=== PATIENT | female | born 1990 | race Caucasian/White ===

== ENCOUNTER → 2017-06-14 | Outpatient (REF) | payer OTHER | LOC: M LAB REF 10:27 | PROVIDERS: ATTEND Physician Assistant Medical | DX: R30.0 Dysuria (principal) ==

== ENCOUNTER → 2017-09-23 | Outpatient (CLI) | payer OTHER ==
[2017-09-23 17:13] LABS: BASO # 0.1 10^3/uL (0.0-0.2); BASO % 0.9 % (0.0-1.0); EOS # 0.2 10^3/uL (0.0-0.50); EOS % 3.5 % (0.0-3.0); HEMATOCRIT 39.5 % (36.0-47.0); IMMATURE GRANULOCYTE % 0.3 % (0-3.0); LYMPH # 2.3 10^3/uL (1.5-6.5); LYMPH % 34.3 % (24.0-44.0); MEAN CORPUSCULAR HGB CONC 32.9 g/dl (32.0-36.5); MONO # 0.4 10^3/uL (0.0-0.8); MONO % 6.5 % (0.0-5.0); NEUTROPHILS # 3.6 10^3/uL (1.8-7.7); NEUTROPHILS % 54.5 % (36.0-66.0); PLATELET COUNT, AUTOMATED 254 10^3/uL (150-450); RED BLOOD COUNT 4.34 10^6/uL (4.00-5.40); WHITE BLOOD COUNT 6.7 10^3/uL (4.0-10.0)
[2017-09-23 17:31] LABS: ALBUMIN 3.8 GM/DL (3.2-5.2); ALBUMIN/GLOBULIN RATIO 1.19 (1.00-1.93); ALKALINE PHOSPHATASE 81 U/L (45-117); ALT/SGPT 14 U/L (12-78); ANION GAP 9 MEQ/L (8-16); AST/SGOT 13 U/L (7-37); BILIRUBIN,TOTAL 0.5 MG/DL (0.2-1.0); BLOOD UREA NITROGEN 11 MG/DL (7-18); CALCIUM LEVEL 8.7 MG/DL (8.5-10.1); CARBON DIOXIDE LEVEL 28 MEQ/L (21-32); CHLORIDE LEVEL 106 MEQ/L (98-107); CREATININE FOR GFR 0.87 MG/DL (0.55-1.30); FREE T4 0.87 NG/DL (0.76-1.46); GLOMERULAR FILTRATION RATE > 60.0 (>60); GLUCOSE, FASTING 82 MG/DL (70-100); POTASSIUM SERUM 4.4 MEQ/L (3.5-5.1); SODIUM LEVEL 143 MEQ/L (136-145)
[2017-09-25 10:36] LABS: TOTAL 25(OH) VITAMIN D 11.8 NG/ML (30.0-100.0); VITAMIN B12 LEVEL 270 PG/ML (247-911)
== END ==
LOC: M WUC 11:04
DX: F32.1 Major depressive disorder, single episode, moderate (principal); E55.9 Vitamin D deficiency, unspecified; E53.8 Deficiency of other specified B group vitamins
CPT/HCPCS: 84443

== ENCOUNTER 2017-11-10 12:48 | Emergency (ER) | payer OTHER ==
[2017-11-10] MEDS: ONDANSETRON 4 MG ORAL DISINTEGRATING TAB (Q0162 PER 1MG) PO (13:42)
[2017-11-10] MEDS: DICYCLOMINE INJ 20MG/2ML (J0500) IM (13:42)
[2017-11-10 14:11] LABS: BASO # 0.1 10^3/uL (0.0-0.2); BASO % 0.7 % (0.0-1.0); EOS # 0.1 10^3/uL (0.0-0.50); EOS % 1.5 % (0.0-3.0); HEMATOCRIT 41.1 % (36.0-47.0); HEMOGLOBIN 13.8 g/dl (12.0-15.5); IMMATURE GRANULOCYTE % 0.3 % (0-3.0); LYMPH # 2.7 10^3/uL (1.5-6.5); LYMPH % 29.3 % (24.0-44.0); MEAN CORPUSCULAR HEMOGLOBIN 29.9 pg (27.0-33.0); MEAN CORPUSCULAR HGB CONC 33.6 g/dl (32.0-36.5); MONO # 0.5 10^3/uL (0.0-0.8); MONO % 5.4 % (0.0-5.0); NEUTROPHILS # 5.8 10^3/uL (1.8-7.7); NEUTROPHILS % 62.8 % (36.0-66.0); PLATELET COUNT, AUTOMATED 224 10^3/uL (150-450); RED BLOOD COUNT 4.62 10^6/uL (4.00-5.40); WHITE BLOOD COUNT 9.2 10^3/uL (4.0-10.0)
[2017-11-10 14:32] LABS: ALBUMIN 3.8 GM/DL (3.2-5.2); ALKALINE PHOSPHATASE 80 U/L (45-117); ALT/SGPT 16 U/L (12-78); AMYLASE 50 U/L (25-115); ANION GAP 3 MEQ/L (8-16); AST/SGOT 18 U/L (7-37); BILIRUBIN,DIRECT 0.1 MG/DL (0.0-0.2); BILIRUBIN,TOTAL 0.4 MG/DL (0.2-1.0); BLOOD UREA NITROGEN 14 MG/DL (7-18); CALCIUM LEVEL 9.3 MG/DL (8.5-10.1); CARBON DIOXIDE LEVEL 31 MEQ/L (21-32); CHLORIDE LEVEL 107 MEQ/L (98-107); CREATININE FOR GFR 0.82 MG/DL (0.55-1.30); GLOMERULAR FILTRATION RATE > 60.0 (>60); GLUCOSE, FASTING 79 MG/DL (70-100); LIPASE 151 U/L (73-393); POTASSIUM SERUM 4.2 MEQ/L (3.5-5.1); SODIUM LEVEL 141 MEQ/L (136-145); TOTAL PROTEIN 7.6 GM/DL (6.4-8.2)
[2017-11-10 14:33] LABS: CONTROL LINE HCG INT CTR LINE PRESENT; HCG, SERUM QUALITATIVE NEGATIVE (NEGATIVE)
== END 2017-11-10 14:51 | disposition home or self-care (01) ==
LOC: M ED 12:48
DX: K92.0 Hematemesis (principal)
CPT/HCPCS: J0500

== ENCOUNTER → 2018-01-15 | Outpatient (REF) | payer OTHER | LOC: M SFHCPLAZ 18:42 | DX: N39.0 Urinary tract infection, site not specified (principal) ==

== ENCOUNTER 2018-02-08 20:06 | Emergency (ER) | payer OTHER ==
[2018-02-08 20:39] LABS: APPEARANCE, URINE HAZY (CLEAR); BACTERIA, URINE AUTO NEGATIVE (NEGATIVE); BILIRUBIN, URINE AUTO NEGATIVE (NEGATIVE); BLOOD, URINE BLOOD NEGATIVE (NEGATIVE); COLOR, URINE YELLOW (YELLOW); GLUCOSE, URINE (UA) AUTO NEGATIVE (NEGATIVE); KETONE, URINE AUTO TRACE mg/dL (NEGATIVE); LEUKOCYTE ESTERASE, URINE AUTO NEGATIVE (NEGATIVE); MUCUS, URINE SMALL (NEGATIVE); NITRITE, URINE AUTO NEGATIVE (NEGATIVE); PROTEIN, URINE AUTO NEGATIVE (NEGATIVE); RBC, URINE AUTO 5 /HPF (0-3); SPECIFIC GRAVITY URINE AUTO 1.026 (1.002-1.035); SQUAMOUS EPITHELIAL CELL UR AU 6 /HPF (0-6); WBC, URINE AUTO 2 /HPF (0-3)
[2018-02-08 21:57] LABS: CONTROL LINE UCG INT CTR LINE PRESENT; URINE PREG TEST NEGATIVE (NEGATIVE)
[2018-02-08] MEDS: NS 1,000 ML IV (22:41)
[2018-02-08 22:44] LABS: BASO # 0.1 10^3/uL (0.0-0.2); BASO % 0.7 % (0.0-1.0); EOS # 0.2 10^3/uL (0.0-0.50); EOS % 1.9 % (0.0-3.0); HEMOGLOBIN 14.2 g/dl (12.0-15.5); IMMATURE GRANULOCYTE % 0.3 % (0-3.0); LYMPH # 3.1 10^3/uL (1.5-6.5); LYMPH % 26.8 % (24.0-44.0); MEAN CORPUSCULAR VOLUME 90.7 fl (80.0-96.0); MONO # 0.7 10^3/uL (0.0-0.8); MONO % 6.3 % (0.0-5.0); NEUTROPHILS # 7.4 10^3/uL (1.8-7.7); PLATELET COUNT, AUTOMATED 270 10^3/uL (150-450); RED BLOOD COUNT 4.74 10^6/uL (4.00-5.40); RED CELL DISTRIBUTION WIDTH 12.8 % (11.5-14.5); WHITE BLOOD COUNT 11.6 10^3/uL (4.0-10.0)
[2018-02-08 23:00] LABS: ALBUMIN/GLOBULIN RATIO 1.08 (1.00-1.93); ALKALINE PHOSPHATASE 89 U/L (45-117); ALT/SGPT 20 U/L (12-78); AMYLASE 54 U/L (25-115); ANION GAP 6 MEQ/L (8-16); AST/SGOT 14 U/L (7-37); BILIRUBIN,DIRECT 0.1 MG/DL (0.0-0.2); BILIRUBIN,TOTAL 0.3 MG/DL (0.2-1.0); BLOOD UREA NITROGEN 13 MG/DL (7-18); CALCIUM LEVEL 8.8 MG/DL (8.5-10.1); CARBON DIOXIDE LEVEL 29 MEQ/L (21-32); CHLORIDE LEVEL 106 MEQ/L (98-107); CREATININE FOR GFR 0.93 MG/DL (0.55-1.30); GLOMERULAR FILTRATION RATE > 60.0 (>60); GLUCOSE, FASTING 81 MG/DL (70-100); LIPASE 172 U/L (73-393); SODIUM LEVEL 141 MEQ/L (136-145); TOTAL PROTEIN 7.7 GM/DL (6.4-8.2)
[2018-02-08] MEDS ORDERED: ISOVUE-370 76% 100ML VIAL (Q9967) As Ordered (23:06)
== END 2018-02-09 00:28 | disposition home or self-care (01) ==
LOC: M ED 02-09 00:28
DX: R10.13 Epigastric pain (principal); Z72.0 Tobacco use
CPT/HCPCS: Q9967

== ENCOUNTER 2018-04-20 11:14 | Day surgery (SDC) | payer OTHER ==
[2018-04-20] MEDS: NS 1,000 ML IV (12:14)
[2018-04-20] MEDS ORDERED: LIDOCAINE 2% INJ 100 MG/5 ML SDV (FOR ANES.) As Ordered (12:34)
[2018-04-20] MEDS ORDERED: PROPOFOL 200 MG/20 ML VIAL As Ordered (12:34)
[2018-04-20] MEDS ORDERED: fentaNYL 100 MCG/2 ML INJECTION (J3010) As Ordered (12:58)
== END 2018-04-20 14:36 | disposition home or self-care (01) ==
LOC: M OPP 11:14
DX: Z86.010 Personal history of colon polyps (principal); R10.13 Epigastric pain; K92.0 Hematemesis; K25.9 Gastric ulcer, unspecified as acute or chronic, without hemorrhage or perforation; K59.00 Constipation, unspecified; F41.9 Anxiety disorder, unspecified; F32.9 Major depressive disorder, single episode, unspecified; J00 Acute nasopharyngitis [common cold]; J45.909 Unspecified asthma, uncomplicated; R06.83 Snoring; Z80.0 Family history of malignant neoplasm of digestive organs; Z83.71 Family history of colonic polyps
CPT/HCPCS: 45378

== ENCOUNTER → 2018-06-11 | Outpatient (CLI) | payer OTHER | LOC: M RAD 18:41 | DX: M79.671 Pain in right foot (principal) | CPT/HCPCS: 73630 ==

== ENCOUNTER 2020-03-04 11:47 | Emergency (ER) | payer OTHER ==
[~2020-03-04] VITALS: Ht 165.1 cm; Wt 69.1 kg
[~2020-03-04 11:47] MED LIST: BENT10CA PO; OMEP10CASR PO; ZOFR4TAB14 PO
[2020-03-04] MEDS ORDERED: PREN29TA4 PO (12:33)
[2020-03-04] MEDS ORDERED: NS 1,000 ML IV ONE (13:15)
[2020-03-04 13:59] LABS: BASO # 0.1 10^3/uL (0.0-0.2); BASO % 0.5 % (0.0-1.0); EOS % 0.4 % (0.0-3.0); HEMATOCRIT 44.1 % (36.0-47.0); HEMOGLOBIN 14.5 g/dl (12.0-15.5); LYMPH # 2.7 10^3/uL (1.5-5.0); LYMPH % 26.2 % (24.0-44.0); MEAN CORPUSCULAR HEMOGLOBIN 29.8 pg (27.0-33.0); MEAN CORPUSCULAR HGB CONC 32.9 g/dl (32.0-36.5); MEAN CORPUSCULAR VOLUME 90.6 fl (80.0-96.0); MONO # 0.7 10^3/uL (0.0-0.8); MONO % 6.5 % (0.0-5.0); NEUTROPHILS # 6.8 10^3/uL (1.5-8.5); NEUTROPHILS % 66.1 % (36.0-66.0); PLATELET COUNT, AUTOMATED 213 10^3/uL (150-450); RED BLOOD COUNT 4.87 10^6/uL (4.00-5.40); WHITE BLOOD COUNT 10.3 10^3/uL (4.0-10.0)
[2020-03-04 14:47] LABS: BLOOD UREA NITROGEN 8 MG/DL (7-18); CALCIUM LEVEL 9.7 MG/DL (8.5-10.1); CARBON DIOXIDE LEVEL 25 MEQ/L (21-32); CHLORIDE LEVEL 106 MEQ/L (98-107); CREATININE FOR GFR 0.75 MG/DL (0.55-1.30); FREE T4 0.93 NG/DL (0.76-1.46); GLOMERULAR FILTRATION RATE > 60.0 (>60); GLUCOSE, FASTING 73 MG/DL (70-100); SODIUM LEVEL 137 MEQ/L (136-145); VITAMIN B12 LEVEL 603 PG/ML (247-911)
[2020-03-04] MEDS ORDERED: UNIS25TA3 PO (15:19)
[2020-03-04] MEDS ORDERED: PYRI25TA2 PO (15:19)
[2020-03-04 15:49] VITALS: BP 110/64
[2020-04-04] MEDS ORDERED: CITA10TA5 PO (11:01)
[2020-04-04] MEDS ORDERED: PRENTAB77 PO (15:00)
== END 2020-03-04 16:11 | disposition home or self-care (01) ==
LOC: M ED 11:47
DX: O26.811 Pregnancy related exhaustion and fatigue, first trimester (principal); O99.281 Endocrine, nutritional and metabolic diseases complicating pregnancy, first trimester; Z3A.01 Less than 8 weeks gestation of pregnancy; Z79.899 Other long term (current) drug therapy

== ENCOUNTER → 2020-03-11 | Outpatient (CLI) | payer OTHER ==
[~2020-03-11] MED LIST changes: +CITA10TA5 PO; +PREN29TA4 PO; +PRENTAB77 PO; +PYRI25TA2 PO; +UNIS25TA3 PO
--- NOTE | 2020-04-06 14:33 | REP ---
FIRST TRIMESTER LIMITED OBSTETRICAL ULTRASOUND CLINICAL: Dating and viability. TECHNIQUE: Transabdominal first trimester obstetrical ultrasound with color Doppler evaluation. FINDINGS: Ultrasound examination demonstrates a single live early intrauterine pregnancies. Gestational sac with yolk sac and pole identified. CRL of 16.5 mm corresponds to 8 weeks 1 day gestational age with estimated date of delivery 10/20/2020. heart rate equals 117 beats per minute. Maternal ovaries are normal in appearance. IMPRESSION: Single live early intrauterine pregnancies at 8 weeks 1 day gestational age. Complete anatomical assessment should be performed at 19-20 weeks. MTDD
== END ==
LOC: M WHC 15:33
PROVIDERS: ATTEND Obstetrics & Gynecology
DX: O36.80X0 Pregnancy with inconclusive fetal viability, not applicable or unspecified (principal)

== ENCOUNTER → 2020-04-04 | Day surgery (SDC) | payer OTHER ==
[~2020-04-04] VITALS: Ht 165.1 cm; Wt 62.3 kg
[~2020-04-04] MED LIST changes: +DOXYCYCLINE HYCLATE 100 MG in D5W MINI-BAG PLUS 100 ML IV ONE; +DOXYCYCLINE HYCLATE 100MG TABLET PO ONE; +HYDROMORPHONE HCL 0.5 MG/ 0.5 ML SYRINGE (J1170 PER 1) IV PRN; +KETOROLAC 60MG 2ML VIAL As Ordered ONE; +KETOROLAC 60MG 2ML VIAL IM ONE; +LIDOCAINE 1% SDV 30ML VIAL As Ordered ONE; +LIDOCAINE 2% 100MG/5ML SDV (FOR ANES.) As Ordered ONE; +LR 1,000 ML IV SCH; +METHYLERGONOVINE MALEATE 0.2 MG/ML VIAL (J2210) As Ordered ONE; +METOCLOPRAMIDE INJ 10MG/2ML VIAL (J2765 PER 1) As Ordered ONE; +MIDAZOLAM INJ 2MG/2ML VIAL (J2250 PER 1MG) As Ordered ONE; +MORPHINE 2 MG/ML 1ML VIAL (J2270) IV ONE; +NS 1,000 ML IV ONE; +ONDANSETRON 4MG/2ML VIAL As Ordered ONE; +ONDANSETRON 4MG/2ML VIAL IV ONE; +ONDANSETRON 4MG/2ML VIAL IV PRN; +SILVER NITRATE APPLICATOR As Ordered ONE; +dexameTHASONE 4 MG/ML 1ML VIAL (J1100 PER 1MG) As Ordered ONE; +fentaNYL 100 MCG/2 ML INJECTION (J3010) As Ordered ONE; +fentaNYL 100 MCG/2 ML INJECTION (J3010) IV PRN; +oxyCODONE 5MG TAB PO PRN; +propofoL 200 MG/20 ML VIAL As Ordered ONE
[2020-04-04 11:25] LABS: BASO % 0.5 % (0.0-1.0); EOS # 0.1 10^3/uL (0.0-0.5); EOS % 0.6 % (0.0-3.0); HEMATOCRIT 39.6 % (36.0-47.0); HEMOGLOBIN 13.1 g/dl (12.0-15.5); LYMPH # 1.6 10^3/uL (1.5-5.0); LYMPH % 20.5 % (24.0-44.0); MEAN CORPUSCULAR HEMOGLOBIN 29.3 pg (27.0-33.0); MEAN CORPUSCULAR HGB CONC 33.1 g/dl (32.0-36.5); MEAN CORPUSCULAR VOLUME 88.6 fl (80.0-96.0); MONO # 0.4 10^3/uL (0.0-0.8); NEUTROPHILS # 5.7 10^3/uL (1.5-8.5); NEUTROPHILS % 73.1 % (36.0-66.0); PLATELET COUNT, AUTOMATED 206 10^3/uL (150-450); RED BLOOD COUNT 4.47 10^6/uL (4.00-5.40); WHITE BLOOD COUNT 7.8 10^3/uL (4.0-10.0)
--- NOTE | 2020-04-04 12:55 | REPVR ---
PROCEDURE INFORMATION: Exam: US First Trimester, Transabdominal Exam date and time: 04/04/2020 11:57 AM Age: 29 years old Clinical indication: Other: Vag bleeding and pelvic pain; Gestational age or lmp: 11wks; ; Additional info: Vaginal bleeding TECHNIQUE: Imaging protocol: Real-time transabdominal obstetrical ultrasound of the maternal pelvis and a first trimester , less than 14 weeks 0 days, with image documentation. COMPARISON: No relevant prior studies available. FINDINGS: Gestation: Single intrauterine gestation. Embryonic/ heart rate: No heart rate detected. Placenta: No subchorionic bleed. Amniotic fluid: Gestational sac appears irregular in shape. BIOMETRY: Gestational age (AUA): Estimated gestational age 8 weeks 2 days. Spangle-Rump length: Spangle-rump length 17.7 mm. MATERNAL: Uterus: The uterus measures 8.4 x 6.1 x 7.2 cm. Cervix: Not visualized. Right adnexa: Not visualized. Left adnexa: Not visualized. Intraperitoneal space: No intraperitoneal free fluid. IMPRESSION: Single intrauterine gestation with crown-rump length of 17.7 mm, with no heart rate detected on transabdominal imaging is suspicious for failed early (note criteria for radiologic diagnosis of failed early requires transvaginal imaging), consider follow-up ultrasound in 7 days if needed. Electronically signed by: Prakash Boucher On 04/04/2020 12:54:53 PM
[2020-04-04 13:04] LABS: APPEARANCE, URINE CLEAR (CLEAR); BACTERIA, URINE AUTO NEGATIVE (NEGATIVE); BILIRUBIN, URINE AUTO NEGATIVE (NEGATIVE); BLOOD, URINE BLOOD 2+ (NEGATIVE); COLOR, URINE YELLOW (YELLOW); GLUCOSE, URINE (UA) AUTO NEGATIVE (NEGATIVE); KETONE, URINE AUTO NEGATIVE (NEGATIVE); LEUKOCYTE ESTERASE, URINE AUTO NEGATIVE (NEGATIVE); NITRITE, URINE AUTO NEGATIVE (NEGATIVE); PROTEIN, URINE AUTO NEGATIVE (NEGATIVE); RBC, URINE AUTO 6 /HPF (0-3); SPECIFIC GRAVITY URINE AUTO 1.017 (1.002-1.035); SQUAMOUS EPITHELIAL CELL UR AU 2 /HPF (0-6); UROBILINOGEN, URINE AUTO 0.2 mg/dL (0.0-2.0); WBC, URINE AUTO 2 /HPF (0-3)
[2020-04-04 17:30] VITALS: BP 131/74
--- NOTE | 2020-04-06 14:29 | RO ---
DATE OF OPERATION: 04/04/2020 PREOPERATIVE DIAGNOSIS: Missed . POSTOPERATIVE DIAGNOSIS: Missed . PROCEDURE: Suction dilation and curettage. STAFF PHYSICIAN: Dr. Nga Gramajo TRUCK CATERER: None. INDICATION: Kym is a 29-year-old G1, now P-0-0-1-0 who presented to the emergency room (ER) with vaginal bleeding and cramping. She was previously seen to have a single intrauterine with positive cardiac activity earlier in March, and then when she presented to the ER today she was noted to have really no further progression in development as well as absent cardiac activity, so missed was diagnosed. ANESTHESIA: General with laryngeal mask airway (LMA). ESTIMATED BLOOD LOSS: 50 mL. INTRAVENOUS FLUIDS: 200 mL lactated Ringer's. URINE OUTPUT: Not measured. SPECIMEN SENT TO LABORATORY: Uterine contents/endometrial curettings. FINDINGS: There was a moderate amount of tissue obtained from suction curettage. DESCRIPTION OF PROCEDURE: Patient was taken to the operating room, where general anesthesia was administered with LMA. She was positioned in dorsal lithotomy position and prepped and draped in normal sterile fashion. Once anesthesia was found to be adequate, a speculum was placed in the vagina. Anterior lip of the cervix was grasped with a tenaculum. There was some tissue noted at the os already, so ring forceps were used to remove that tissue, and they were placed with the specimen. At that point, I dilated the cervix using Sven dilators, and then a size 9 straight suction curette was used. It was connected to the suction and placed in the cervix, and suction curette was performed. I also sounded the uterus to 7 cm. Approximately four or five passed were made with the suction curettage, and then a sharp curettage was performed, obtaining a small amount of tissue, and that was followed by another round of suction curettage. At that point, she had some continuous bleeding from the cervix, so I removed the tenaculum. There was slight hemostasis from the tenaculum sites, but I also removed the speculum, and then I performed bimanual massage. I replaced the speculum and removed clot from the vagina with sponge and then noted that there was no further bleeding from the cervix. At that point, I again removed the speculum. I performed a transabdominal ultrasound and noted very thin endometrial stripe. The patient was awakened from anesthesia. All counts were correct times two. She was taken to the recovery room in stable condition. She will be discharged later today. She received 100 mg of IV doxycycline preoperatively, and she will receive 200 mg of oral doxycycline prior to discharge. She will follow up within a week in the office. LUBA
== END | disposition home or self-care (01) ==
LOC: M ED 10:53 → M SDC 14:42
PROVIDERS: ATTEND Obstetrics & Gynecology
DX: O02.1 Missed abortion (principal)
CPT/HCPCS: 59820; 76801; 81001; 84702; 85025; 86850; 86900; 86901; 87086; 88305; 96361; 96372; 96374; 96375; 99285; J1100; J1885; J2250; J2270; J2405; J2765; J3010; U0002

== ENCOUNTER → 2020-07-27 | Outpatient (CLI) | payer OTHER ==
[~2020-07-27] MED LIST changes: -DOXYCYCLINE HYCLATE 100 MG in D5W MINI-BAG PLUS 100 ML IV ONE; -DOXYCYCLINE HYCLATE 100MG TABLET PO ONE; -HYDROMORPHONE HCL 0.5 MG/ 0.5 ML SYRINGE (J1170 PER 1) IV PRN; -KETOROLAC 60MG 2ML VIAL As Ordered ONE; -KETOROLAC 60MG 2ML VIAL IM ONE; -LIDOCAINE 1% SDV 30ML VIAL As Ordered ONE; -LIDOCAINE 2% 100MG/5ML SDV (FOR ANES.) As Ordered ONE; -LR 1,000 ML IV SCH; -METHYLERGONOVINE MALEATE 0.2 MG/ML VIAL (J2210) As Ordered ONE; -METOCLOPRAMIDE INJ 10MG/2ML VIAL (J2765 PER 1) As Ordered ONE; -MIDAZOLAM INJ 2MG/2ML VIAL (J2250 PER 1MG) As Ordered ONE; -MORPHINE 2 MG/ML 1ML VIAL (J2270) IV ONE; -NS 1,000 ML IV ONE; -ONDANSETRON 4MG/2ML VIAL As Ordered ONE; -ONDANSETRON 4MG/2ML VIAL IV ONE; -ONDANSETRON 4MG/2ML VIAL IV PRN; -SILVER NITRATE APPLICATOR As Ordered ONE; -dexameTHASONE 4 MG/ML 1ML VIAL (J1100 PER 1MG) As Ordered ONE; -fentaNYL 100 MCG/2 ML INJECTION (J3010) As Ordered ONE; -fentaNYL 100 MCG/2 ML INJECTION (J3010) IV PRN; -oxyCODONE 5MG TAB PO PRN; -propofoL 200 MG/20 ML VIAL As Ordered ONE
[2020-07-27 15:41] LABS: BASO # 0.1 10^3/uL (0.0-0.2); BASO % 0.7 % (0.0-1.0); EOS # 0.1 10^3/uL (0.0-0.5); EOS % 0.7 % (0.0-3.0); HEMOGLOBIN 13.6 g/dl (12.0-15.5); LYMPH # 2.5 10^3/uL (1.5-5.0); LYMPH % 34.9 % (24.0-44.0); MEAN CORPUSCULAR HEMOGLOBIN 29.2 pg (27.0-33.0); MEAN CORPUSCULAR HGB CONC 31.6 g/dl (32.0-36.5); MEAN CORPUSCULAR VOLUME 92.3 fl (80.0-96.0); MONO # 0.5 10^3/uL (0.0-0.8); MONO % 6.9 % (0.0-5.0); NEUTROPHILS % 56.7 % (36.0-66.0); PLATELET COUNT, AUTOMATED 237 10^3/uL (150-450); RED BLOOD COUNT 4.66 10^6/uL (4.00-5.40); WHITE BLOOD COUNT 7.1 10^3/uL (4.0-10.0)
[2020-07-27 15:44] LABS: HEMATOCRIT 43.5 % (36.0-47.0)
[2020-07-27 16:10] LABS: ERYTHROCYTE SEDIMENTATION RATE 9 mm/hr (0-20)
[2020-07-27 16:12] LABS: C REACTIVE PROTEIN QUANTITATIV < 0.30 MG/DL (0.00-0.30); FREE T3 2.6 PG/ML (2.2-4.0); FREE T4 0.97 NG/DL (0.76-1.46); IMMUNOGLOBULIN G 986 MG/DL (681-1648)
[2020-07-27 16:14] LABS: THYROID PEROXIDASE ANTIBODY 36.6 U/ML (<60.0); TOTAL 25(OH) VITAMIN D 14.3 NG/ML (30.0-100.0); VITAMIN B12 LEVEL 314 PG/ML (247-911)
[2020-08-04 17:09] LABS: EBV VIRAL CAPSID AG IgM <36.0 U/mL (0.0-35.9); Lyme Disease IgG/IgM Antibodie <0.91 ISR (0.00-0.90); Lyme Disease IgM Ab Quantitati <0.80 index (0.00-0.79); Methylmalonic Acid 109 nmol/L (0-378); TISSUE TRANSGLUTAMINASE IgA <2 U/mL (0-3); UNITSIGA FOR GLIADIN IGA 19 units (0-19); UNITSIGG FOR GLIADIN IGG 4 units (0-19)
== END ==
LOC: M LAB 14:15
PROVIDERS: ATTEND Nurse Practitioner Pediatrics
DX: F41.1 Generalized anxiety disorder (principal); F51.01 Primary insomnia; R19.7 Diarrhea, unspecified; R10.32 Left lower quadrant pain

== ENCOUNTER → 2020-07-27 | Outpatient (CLI) | payer OTHER ==
[2020-07-27 15:42] LABS: BASO % 0.5 % (0.0-1.0); EOS # 0.1 10^3/uL (0.0-0.5); EOS % 0.8 % (0.0-3.0); HEMATOCRIT 43.5 % (36.0-47.0); HEMOGLOBIN 13.8 g/dl (12.0-15.5); LYMPH # 2.5 10^3/uL (1.5-5.0); LYMPH % 33.8 % (24.0-44.0); MEAN CORPUSCULAR HEMOGLOBIN 29.4 pg (27.0-33.0); MEAN CORPUSCULAR HGB CONC 31.7 g/dl (32.0-36.5); MEAN CORPUSCULAR VOLUME 92.6 fl (80.0-96.0); MONO # 0.5 10^3/uL (0.0-0.8); MONO % 6.3 % (0.0-5.0); NEUTROPHILS # 4.3 10^3/uL (1.5-8.5); NEUTROPHILS % 58.3 % (36.0-66.0); PLATELET COUNT, AUTOMATED 229 10^3/uL (150-450); WHITE BLOOD COUNT 7.3 10^3/uL (4.0-10.0)
[2020-07-27 16:21] LABS: ALT/SGPT 22 U/L (12-78); BILIRUBIN,TOTAL 0.5 MG/DL (0.2-1.0); BLOOD UREA NITROGEN 9 MG/DL (7-18); CALCIUM LEVEL 9.7 MG/DL (8.5-10.1); CARBON DIOXIDE LEVEL 29 MEQ/L (21-32); CHLORIDE LEVEL 106 MEQ/L (98-107); GLOMERULAR FILTRATION RATE > 60.0 (>60); GLUCOSE, FASTING 82 MG/DL (70-100); HCG, SERUM QUANTITATIVE < 1.0 MIU/ML; POTASSIUM SERUM 4.6 MEQ/L (3.5-5.1); SODIUM LEVEL 138 MEQ/L (136-145); TOTAL PROTEIN 7.5 GM/DL (6.4-8.2)
== END ==
LOC: M LAB 14:13
PROVIDERS: ATTEND Physician Assistant
DX: R10.32 Left lower quadrant pain (principal)

== ENCOUNTER → 2020-10-14 | Outpatient (REF) | payer OTHER | LOC: M LAB REF 18:38 | PROVIDERS: ATTEND Physician Assistant | DX: R50.9 Fever, unspecified (principal) ==

== ENCOUNTER 2020-11-06 11:34 | Emergency (ER) | payer OTHER ==
[~2020-11-06] VITALS: Ht 165.1 cm; Wt 63.6 kg
[2020-11-06] MEDS ORDERED: ALBUTEROL 90 MCG/ACT 8GM HFA INHALER INH ONE (12:50)
[2020-11-06 13:23] LABS: BASO % 0.1 % (0.0-1.0); EOS % 0.1 % (0.0-3.0); HEMATOCRIT 45.6 % (36.0-47.0); HEMOGLOBIN 14.8 g/dl (12.0-15.5); LYMPH # 1.5 10^3/uL (1.5-5.0); LYMPH % 19.4 % (24.0-44.0); MEAN CORPUSCULAR HEMOGLOBIN 29.1 pg (27.0-33.0); MEAN CORPUSCULAR HGB CONC 32.5 g/dl (32.0-36.5); MEAN CORPUSCULAR VOLUME 89.8 fl (80.0-96.0); MONO # 0.4 10^3/uL (0.0-0.8); MONO % 5.1 % (2.0-8.0); NEUTROPHILS # 5.8 10^3/uL (1.5-8.5); NEUTROPHILS % 74.9 % (36.0-66.0); PLATELET COUNT, AUTOMATED 180 10^3/uL (150-450); RED BLOOD COUNT 5.08 10^6/uL (4.00-5.40); WHITE BLOOD COUNT 7.7 10^3/uL (4.0-10.0)
--- NOTE | 2020-11-06 14:18 | REP ---
INDICATION: central chest pain. COMPARISON: No comparison chest x-ray. TECHNIQUE: Portable upright AP chest radiograph. FINDINGS: The lungs are well inflated and free of infiltrate. Pleural angles are sharp. Heart size is normal. Pulmonary vasculature is not increased. IMPRESSION: No active disease. <Electronically signed by Vidal Long > 11/06/20 2027
[2020-11-06] MEDS ORDERED: VENTAER INH (14:35)
[2020-11-06 14:47] VITALS: BP 121/65
== END 2020-11-06 14:49 | disposition home or self-care (01) ==
LOC: M ED 11:34
DX: Z20.828 Contact with and (suspected) exposure to other viral communicable diseases (principal); J06.9 Acute upper respiratory infection, unspecified; R07.9 Chest pain, unspecified

== ENCOUNTER → 2021-03-31 | Outpatient (CLI) | payer OTHER ==
[~2021-03-31] MED LIST changes: +VENTAER INH
--- NOTE | 2021-03-31 17:05 | REP ---
INDICATION: NEW DAILY PATIENT HEADACHE (NDPH). New daily persistent headache. Confusion right-sided weakness. COMPARISON: None. TECHNIQUE: Helical scanning is acquired. 5 mm axial images were reformatted. Coronal MPR images were generated. FINDINGS: Bone window settings demonstrate an intact bony calvarium. There is no evidence of skull fracture or incidental bony calvarial lesion. The visualized paranasal sinuses appear clear. No intraorbital abnormality is seen. On soft tissue window setting images; the lateral, third, and fourth ventricles are normal in size and position. Whitman-white differentiation pattern is normal above and below the tentorium. There are is no evidence of intracranial hemorrhage. No mass, edema, infarction, or midline shift is seen. No extra-axial fluid collection is appreciated. IMPRESSION: Negative noncontrast head CT. <Electronically signed by Vidal Long > 03/31/21 [id number]
== END ==
LOC: M RAD 15:59 → M PLAIMG 15:59
PROVIDERS: ATTEND Physician Assistant
DX: G44.52 New daily persistent headache (NDPH) (principal)

== ENCOUNTER → 2021-04-06 | Outpatient (CLI) | payer OTHER ==
[2021-04-06 18:01] LABS: BASO # 0.1 10^3/uL (0.0-0.2); BASO % 0.4 % (0.0-1.0); EOS # 0.1 10^3/uL (0.0-0.5); EOS % 0.6 % (0.0-3.0); HEMATOCRIT 41.7 % (36.0-47.0); HEMOGLOBIN 13.3 g/dl (12.0-15.5); LYMPH # 1.7 10^3/uL (1.5-5.0); LYMPH % 13.4 % (24.0-44.0); MEAN CORPUSCULAR HEMOGLOBIN 29.5 pg (27.0-33.0); MEAN CORPUSCULAR HGB CONC 31.9 g/dl (32.0-36.5); MEAN CORPUSCULAR VOLUME 92.5 fl (80.0-96.0); MONO # 0.6 10^3/uL (0.0-0.8); MONO % 4.6 % (2.0-8.0); NEUTROPHILS # 10.1 10^3/uL (1.5-8.5); NEUTROPHILS % 80.7 % (36.0-66.0); PLATELET COUNT, AUTOMATED 223 10^3/uL (150-450); RED BLOOD COUNT 4.51 10^6/uL (4.00-5.40); WHITE BLOOD COUNT 12.6 10^3/uL (4.0-10.0)
[2021-04-06 18:27] LABS: ERYTHROCYTE SEDIMENTATION RATE 12 mm/hr (0-20)
[2021-04-06 18:27] LABS: ALBUMIN 3.5 GM/DL (3.2-5.2); ALT/SGPT 15 U/L (12-78); BILIRUBIN,TOTAL 0.4 MG/DL (0.2-1.0); BLOOD UREA NITROGEN 19 MG/DL (7-18); C REACTIVE PROTEIN QUANTITATIV 0.45 MG/DL (0.00-0.30); CARBON DIOXIDE LEVEL 30 MEQ/L (21-32); CHLORIDE LEVEL 107 MEQ/L (98-107); CREATININE FOR GFR 0.93 MG/DL (0.55-1.30); GLOMERULAR FILTRATION RATE > 60.0 (>60); GLUCOSE, FASTING 113 MG/DL (70-100); POTASSIUM SERUM 3.9 MEQ/L (3.5-5.1); SODIUM LEVEL 140 MEQ/L (136-145)
== END ==
LOC: M PLALAB 14:59
PROVIDERS: ATTEND Physician Assistant
DX: G44.52 New daily persistent headache (NDPH) (principal)

== ENCOUNTER → 2021-04-14 | Outpatient (CLI) | payer OTHER ==
--- NOTE | 2021-04-15 15:50 | REPVR ---
PROCEDURE INFORMATION: Exam: MR Head Without Contrast Exam date and time: 04/14/2021 12:09 PM Age: 30 years old Clinical indication: Pain; Headache; Additional info: WARD TECHNIQUE: Imaging protocol: MR of the head without contrast. Other technique: MRA is recommended to evaluate for vascular structures. COMPARISON: CT Head without contrast 03/31/2021 4:59 PM FINDINGS: Brain: Normal. No acute infarct. No hemorrhage. No significant white matter disease. No edema. Cerebral ventricles: Normal. No ventriculomegaly. Bones/joints: Unremarkable. Paranasal sinuses: Normal as visualized. No acute sinusitis. Mastoid air cells: Normal as visualized. No mastoid effusion. Orbital cavity: Unremarkable. Soft tissues: Unremarkable. IMPRESSION: No acute findings. PROCEDURE INFORMATION: Exam: MRA Head Without Contrast; Arteriography Exam date and time: 04/14/2021 12:09 PM Age: 30 years old Clinical indication: Pain; Headache; Additional info: WARD TECHNIQUE: Imaging protocol: Magnetic resonance angiography head without contrast. Exam focused on the arteries. Other technique: MRA is recommended to evaluate for vascular structures. COMPARISON: CT Head without contrast 03/31/2021 4:59 PM FINDINGS: ANTERIOR CIRCULATION: Right internal carotid artery: There is significant artifact limiting evaluation of the petrous and proximal cavernous right internal carotid artery. Right middle cerebral artery: No occlusion or significant stenosis. No aneurysm. Right anterior cerebral artery: No occlusion or significant stenosis. No aneurysm. Left internal carotid artery: There is significant artifact limiting evaluation of the petrous and proximal cavernous left internal carotid artery. Left middle cerebral artery: No occlusion or significant stenosis. No aneurysm. Left anterior cerebral artery: No occlusion or significant stenosis. No aneurysm. POSTERIOR CIRCULATION: Right vertebral artery: The patient is right vertebral artery dominant. Left vertebral artery: No occlusion or significant stenosis. No aneurysm. Basilar artery: No occlusion or significant stenosis. No aneurysm. Right posterior cerebral artery: No occlusion or significant stenosis. No aneurysm. Left posterior cerebral artery: No occlusion or significant stenosis. No aneurysm. Other vasculature: There is an azygos anterior cerebral artery. IMPRESSION: There is significant artifact limiting evaluation of the petrous and proximal cavernous intracranial internal carotid arteries. The cause for this is not determined on this exam. Further evaluation of these arterial segments may be performed with CTA if clinically indicated. Electronically signed by: Geoffrey Grossman On 04/15/2021 15:49:56 PM
--- NOTE | 2021-04-15 22:32 | REPVR ---
PROCEDURE INFORMATION: Exam: MR Head Without Contrast Exam date and time: 04/14/2021 12:23 PM Age: 30 years old Clinical indication: Pain; Headache; Additional info: Headaches TECHNIQUE: Imaging protocol: MR of the head without contrast. COMPARISON: MRA BRAIN W/O CONTRAST 04/14/2021 11:59 AM FINDINGS: Brain: Unremarkable. No acute infarct. No hemorrhage. No significant white matter disease. No edema. Cerebral ventricles: Normal. No ventriculomegaly. Bones/joints: Unremarkable. Paranasal sinuses: Normal as visualized. No acute sinusitis. Mastoid air cells: Normal as visualized. No mastoid effusion. Soft tissues: Unremarkable. IMPRESSION: No acute findings. Electronically signed by: Chadwick Ham On 04/15/2021 22:32:17 PM
== END ==
LOC: M PLAIMG 10:56
PROVIDERS: ATTEND Physician Assistant
DX: R51.9 Headache, unspecified (principal)

== ENCOUNTER → 2021-04-26 | Outpatient (CLI) | payer OTHER ==
[2021-04-26 18:13] LABS: FREE T4 0.91 NG/DL (0.76-1.46); THYROID STIMULATING HORMONE 1.32 uIU/ML (0.358-3.740)
[2021-04-26 18:15] LABS: ESTRADIOL 46.5 PG/ML; LUTEINIZING HORMONE 12.1 mIU/mL; PROGESTERONE 0.46 NG/ML; PROLACTIN 14.9 NG/ML
[2021-04-26 18:16] LABS: FOLLICLE STIMULATING HORMONE 7.4 mIU/mL
== END ==
LOC: M PLALAB 14:46
PROVIDERS: ATTEND Obstetrics & Gynecology
DX: N96 Recurrent pregnancy loss (principal)

== ENCOUNTER → 2021-06-26 | Outpatient (CLI) | payer OTHER ==
[~2021-06-26] MED LIST changes: -CITA10TA5 PO; +CITA10TA7 PO
== END ==
LOC: M LAB 13:33
PROVIDERS: ATTEND Obstetrics & Gynecology
DX: O36.80X0 Pregnancy with inconclusive fetal viability, not applicable or unspecified (principal)

== ENCOUNTER → 2021-06-28 | Outpatient (CLI) | payer OTHER | LOC: M PLALAB 14:23 | PROVIDERS: ATTEND Obstetrics & Gynecology | DX: O36.80X0 Pregnancy with inconclusive fetal viability, not applicable or unspecified (principal); Z3A.00 Weeks of gestation of pregnancy not specified ==

== ENCOUNTER → 2021-07-26 | Outpatient (CLI) | payer OTHER | LOC: M PLALAB 09:36 | PROVIDERS: ATTEND Obstetrics & Gynecology | DX: O20.0 Threatened abortion (principal); Z3A.00 Weeks of gestation of pregnancy not specified | CPT/HCPCS: 36415; 85025; 86762; 86780; 86803; 86850; 86900; 86901; 87086; 87340; 87389; 87810; 87850; G0463 ==

== ENCOUNTER → 2021-08-16 | Outpatient (REF) | payer OTHER ==
[2021-08-16 18:51] LABS: APPEARANCE, URINE CLOUDY (CLEAR); BACTERIA, URINE AUTO NEGATIVE (NEGATIVE); BILIRUBIN, URINE AUTO NEGATIVE (NEGATIVE); BLOOD, URINE BLOOD NEGATIVE (NEGATIVE); COLOR, URINE YELLOW (YELLOW); GLUCOSE, URINE (UA) AUTO 3+ mg/dL (NEGATIVE); KETONE, URINE AUTO TRACE mg/dL (NEGATIVE); LEUKOCYTE ESTERASE, URINE AUTO NEGATIVE (NEGATIVE); MUCUS, URINE SMALL (NEGATIVE); NITRITE, URINE AUTO NEGATIVE (NEGATIVE); PROTEIN, URINE AUTO NEGATIVE (NEGATIVE); RBC, URINE AUTO 2 /HPF (0-3); SPECIFIC GRAVITY URINE AUTO 1.024 (1.002-1.035); SQUAMOUS EPITHELIAL CELL UR AU 7 /HPF (0-6); UROBILINOGEN, URINE AUTO 0.2 mg/dL (0.0-2.0); WBC, URINE AUTO 3 /HPF (0-3)
== END ==
LOC: M LAB REF 17:15
PROVIDERS: ATTEND Physician Assistant Medical
DX: R30.0 Dysuria (principal)

== ENCOUNTER → 2021-10-04 | Outpatient (CLI) | payer OTHER | LOC: M WHC 13:42 | PROVIDERS: ATTEND Obstetrics & Gynecology | DX: Z34.92 Encounter for supervision of normal pregnancy, unspecified, second trimester (principal) ==

== ENCOUNTER 2021-10-20 17:03 | Outpatient (CLI) | payer OTHER ==
[~2021-10-20] VITALS: Ht 165.1 cm; Wt 68.3 kg
[~2021-10-20 17:03] MED LIST changes: -PRENTAB9 PO
[2021-10-20] MEDS ORDERED: PRENTAB9 PO (18:55)
== END 2021-10-20 20:49 | disposition home or self-care (01) ==
LOC: M LDO 17:03
PROVIDERS: ATTEND Advanced Practice Midwife
DX: O26.872 Cervical shortening, second trimester (principal); Z3A.21 21 weeks gestation of pregnancy

== ENCOUNTER → 2021-10-20 | Outpatient (CLI) | payer OTHER ==
[~2021-10-20] MED LIST changes: +PRENTAB9 PO
== END ==
LOC: M WHC 14:56
PROVIDERS: ATTEND Obstetrics & Gynecology
DX: Z34.92 Encounter for supervision of normal pregnancy, unspecified, second trimester (principal); Z3A.21 21 weeks gestation of pregnancy

== ENCOUNTER 2021-10-26 11:40 | Outpatient (CLI) | payer OTHER ==
[~2021-10-26] VITALS: Ht 165.1 cm; Wt 69.1 kg
[2021-10-26] VITALS (8 sets, daily range): BP systolic 91–160; BP diastolic 53–87
[~2021-10-26 11:40] MED LIST changes: +PRENTAB9 PO
[2021-10-26] MEDS ORDERED: ENDO100S PV (12:05)
[2021-10-26] MEDS ORDERED: ASPI81CH33 PO (12:06)
[2021-10-26] MEDS ORDERED: LACTATED RINGER'S 1000 ML IV ONE (15:55)
[2021-10-26] MEDS ORDERED: LEXA5TAB13 PO (16:09)
[2021-10-26] MEDS ORDERED: B-12100021 PO (16:09)
[2021-10-26 16:11] LABS: HEMATOCRIT 35.3 % (36.0-47.0); HEMOGLOBIN 11.8 g/dl (12.0-15.5); MEAN CORPUSCULAR HEMOGLOBIN 29.6 pg (27.0-33.0); MEAN CORPUSCULAR HGB CONC 33.4 g/dl (32.0-36.5); MEAN CORPUSCULAR VOLUME 88.5 fl (80.0-96.0); PLATELET COUNT, AUTOMATED 221 10^3/uL (150-450); RED BLOOD COUNT 3.99 10^6/uL (4.00-5.40); WHITE BLOOD COUNT 14.5 10^3/uL (4.0-10.0)
[2021-10-26] MEDS: LR 1,000 ML IV SCH ×2 (16:22→21:08)
[2021-10-26] MEDS ORDERED: fentaNYL 100 MCG/2 ML INJECTION As Ordered ONE (19:03)
[2021-10-26] MEDS ORDERED: LIDOCAINE 2% 100MG/5ML SDV (FOR ANES.) As Ordered ONE (19:04)
[2021-10-26] MEDS ORDERED: ONDANSETRON 4MG/2ML VIAL As Ordered ONE (19:04)
[2021-10-26] MEDS ORDERED: propofoL 200 MG/20 ML VIAL As Ordered ONE ×2 (19:04→19:28)
[2021-10-26] MEDS ORDERED: INDOMETHACIN 25 MG CAP PO PRN (20:10)
[2021-10-26] MEDS ORDERED: fentaNYL 100 MCG/2 ML INJECTION IV PRN (20:20)
[2021-10-26] MEDS ORDERED: LR 1,000 ML IV SCH (20:20)
[2021-10-27 02:30] VITALS: BP 124/78
[2021-10-27 06:39] VITALS: BP 110/70
== END 2021-10-27 07:40 | disposition home or self-care (01) ==
LOC: M LDO 11:40
PROVIDERS: ATTEND Obstetrics & Gynecology
DX: O34.32 Maternal care for cervical incompetence, second trimester (principal); O26.893 Other specified pregnancy related conditions, third trimester; R10.2 Pelvic and perineal pain; M54.50 Low back pain, unspecified; Z3A.22 22 weeks gestation of pregnancy
CPT/HCPCS: 59320; 76815; 76817; 85027; 86850; 86900; 86901; 87426; J2405; J3010

== ENCOUNTER 2021-11-25 15:50 | Outpatient (CLI) | payer OTHER ==
[~2021-11-25] VITALS: Ht 165.1 cm; Wt 72.6 kg
[~2021-11-25 15:50] MED LIST changes: +ASPI81CH33 PO; +B-12100021 PO; +ENDO100S PV; +LEXA5TAB13 PO
[2021-11-25 16:07] VITALS: BP 132/82
[2021-11-25] MEDS ORDERED: ACET-716 PO (16:09)
[2021-11-25] MEDS ORDERED: HOME MED LIST COMPLETE! XX SCH (16:10)
== END 2021-11-25 17:45 | disposition home or self-care (01) ==
LOC: M LDO 15:50
PROVIDERS: ATTEND Specialist
DX: O26.892 Other specified pregnancy related conditions, second trimester (principal); R10.30 Lower abdominal pain, unspecified; R10.2 Pelvic and perineal pain; O34.32 Maternal care for cervical incompetence, second trimester; Z3A.26 26 weeks gestation of pregnancy
CPT/HCPCS: 59025; G0378; G0463

== ENCOUNTER → 2021-12-02 | Outpatient (CLI) | payer OTHER ==
[~2021-12-02] MED LIST changes: +ACET-716 PO
[2021-12-02 15:44] LABS: HEMATOCRIT 32.3 % (36.0-47.0); HEMOGLOBIN 10.3 g/dl (12.0-15.5); MEAN CORPUSCULAR HEMOGLOBIN 29.2 pg (27.0-33.0); MEAN CORPUSCULAR HGB CONC 31.9 g/dl (32.0-36.5); MEAN CORPUSCULAR VOLUME 91.5 fl (80.0-96.0); PLATELET COUNT, AUTOMATED 196 10^3/uL (150-450); RED BLOOD COUNT 3.53 10^6/uL (4.00-5.40); WHITE BLOOD COUNT 11.9 10^3/uL (4.0-10.0)
== END ==
LOC: M PLALAB 11:28
PROVIDERS: ATTEND Obstetrics & Gynecology
DX: N88.3 Incompetence of cervix uteri (principal)

== ENCOUNTER → 2021-12-27 | Outpatient (CLI) | payer OTHER | LOC: M LAB 08:23 | PROVIDERS: ATTEND Obstetrics & Gynecology | DX: O99.810 Abnormal glucose complicating pregnancy (principal); Z3A.00 Weeks of gestation of pregnancy not specified ==

== ENCOUNTER 2022-01-09 22:06 | Outpatient (CLI) | payer OTHER ==
[~2022-01-09] VITALS: Ht 165.1 cm; Wt 77.5 kg
[2022-01-09 22:16] VITALS: BP 131/82
[2022-01-09] MEDS ORDERED: ONDANSETRON 4MG ORAL DISINTEGRATING TAB SL PRN (22:45)
[2022-01-09] MEDS ORDERED: ONDA4TAB6 SL (23:21)
== END 2022-01-09 22:56 | disposition home or self-care (01) ==
LOC: M LDO 22:06
PROVIDERS: ATTEND Obstetrics & Gynecology
DX: O26.893 Other specified pregnancy related conditions, third trimester (principal); R10.12 Left upper quadrant pain; Z3A.32 32 weeks gestation of pregnancy
CPT/HCPCS: 59025; G0378; G0463

== ENCOUNTER → 2022-01-25 | Outpatient (CLI) | payer OTHER ==
[~2022-01-25] MED LIST changes: +ONDA4TAB6 SL
== END ==
LOC: M WHC 10:00
PROVIDERS: ATTEND Obstetrics & Gynecology
DX: O24.410 Gestational diabetes mellitus in pregnancy, diet controlled (principal); Z3A.35 35 weeks gestation of pregnancy

== ENCOUNTER → 2022-01-27 | Outpatient (CLI) | payer OTHER | LOC: M LABSMTC 10:00 | PROVIDERS: ATTEND Anesthesiology | DX: Z11.52 Encounter for screening for COVID-19 (principal); Z20.822 Contact with and (suspected) exposure to COVID-19 ==

== ENCOUNTER 2022-02-01 14:13 | Day surgery (SDC) | payer OTHER ==
[~2022-02-01] VITALS: Ht 165.1 cm; Wt 78.5 kg
[~2022-02-01 14:13] MED LIST changes: +LR 1,000 ML IV ONE
[2022-02-01 14:57] LABS: HEMATOCRIT 35.4 % (36.0-47.0); HEMOGLOBIN 11.4 g/dl (12.0-15.5); MEAN CORPUSCULAR HEMOGLOBIN 26.9 pg (27.0-33.0); MEAN CORPUSCULAR HGB CONC 32.2 g/dl (32.0-36.5); MEAN CORPUSCULAR VOLUME 83.5 fl (80.0-96.0); PLATELET COUNT, AUTOMATED 208 10^3/uL (150-450); RED BLOOD COUNT 4.24 10^6/uL (4.00-5.40); WHITE BLOOD COUNT 12.1 10^3/uL (4.0-10.0)
[2022-02-01] MEDS ORDERED: MIDAZOLAM INJ 2MG/2ML VIAL (J2250 PER 1MG) As Ordered ONE (16:24)
[2022-02-01] MEDS ORDERED: propofoL 200 MG/20 ML VIAL As Ordered ONE (16:24)
[2022-02-01] MEDS ORDERED: LIDOCAINE 2% 100MG/5ML SDV (FOR ANES.) As Ordered ONE (16:24)
[2022-02-01] MEDS ORDERED: fentaNYL 100 MCG/2 ML INJECTION As Ordered ONE (16:24)
[2022-02-01 18:33] VITALS: BP 133/92
== END 2022-02-01 18:35 | disposition home or self-care (01) ==
LOC: M SDC 14:13
PROVIDERS: ATTEND Obstetrics & Gynecology
DX: O26.873 Cervical shortening, third trimester (principal); Z3A.36 36 weeks gestation of pregnancy; Z79.899 Other long term (current) drug therapy
CPT/HCPCS: 36415; 59320; 85027; 86850; 86900; 86901; 87081; J2250; J3010

== ENCOUNTER 2022-02-01 18:45 | Outpatient (CLI) | payer OTHER ==
[~2022-02-01] VITALS: Ht 165.1 cm; Wt 80.2 kg
[~2022-02-01 18:45] MED LIST changes: -LR 1,000 ML IV ONE
[2022-02-01 19:12] VITALS: BP 140/82
[2022-02-01 19:15] VITALS: BP 123/77
== END 2022-02-01 19:40 | disposition home or self-care (01) ==
LOC: M LDO 18:45
PROVIDERS: ATTEND Obstetrics & Gynecology
DX: O34.33 Maternal care for cervical incompetence, third trimester (principal); Z3A.36 36 weeks gestation of pregnancy
CPT/HCPCS: 59025; G0378; G0463

== ENCOUNTER → 2022-11-09 | Outpatient (REF) | payer OTHER ==
[~2022-11-09] MED LIST changes: +ACET-683 PO; +ACET-897 PO; +IBUP80TA PO
== END ==
LOC: M LAB REF 20:55
PROVIDERS: ATTEND Physician Assistant
DX: J02.9 Acute pharyngitis, unspecified (principal); B34.9 Viral infection, unspecified